=== PATIENT | female | born 1945 | race Caucasian/White ===

== ENCOUNTER → 2018-03-05 | Outpatient (CLI) | payer MEDICARE ==
[~2018-03-05] MED LIST: ALLO300T PO; ASPI-515 PO; CEFD300C37 PO; CELE50CA PO; COLC0.6T37 PO; METH500T7 PO; OMEP40CA6 PO; POTA10TA12 PO
== END | disposition home or self-care (01) ==
LOC: CFH 08:18
PROVIDERS: ATTEND Family Medicine
DX: R94.5 Abnormal results of liver function studies (principal)
CPT/HCPCS: 76705